=== PATIENT | female | born 1940 | race Caucasian/White ===

== ENCOUNTER 2018-03-05 20:57 | Inpatient (IN) | payer OTHER ==
[~2018-03-05] VITALS: Ht 149.9 cm; Wt 63.5 kg
[~2018-03-05 20:57] MED LIST: ALDACTONE25 MG; ARICEPT10 MG; ARICEPT10 MG PO; ASA-EC81 MG PO; BACTROBAN OINT22 GM TP; COREG CR10 MG; COZAAR PO; COZAAR25 MG; CYMBALTA60 MG; CYMBALTA60 MG PO; Coreg 12.5MG TABLET PO; Coreg PO; ECOTRIN325 M1; EFFIENT10 MG; EFFIENT10 MG PO; HumaLOG 100 UNIT/1 M SUBCUTANEO; Imdur 30MG PO; Intestinex CAP PO; LASIX20 MG; LASIX20 MG PO; LEVAQUIN500 MG PO; LIPITOR20 MG; LIPITOR20 MG PO; LOSARTAN POTASS25 MG PO; Lantus 1000 U/10 ML SUBCUTANEO; Pulmicort 0.5 MG/2 M IH; SEPTRA DS TABLE1 TAB PO; SPIRONOLACTONE25 MG PO; XOPENEX0.63 MG/3 IH
== END 2018-03-10 15:29 | disposition designated cancer center or children's hospital (05) | DRG 280 ==
LOC: ER 20:57 → MEDI 03-06 07:15 → SEC-K 03-06 09:32 → MEDI 03-06 13:39
PROC: 4A12X4Z Monitoring of Cardiac Electrical Activity, External Approach (ICD-10-PCS; 2018-03-06)
PROC: B246ZZZ Ultrasonography of Right and Left Heart (ICD-10-PCS; 2018-03-07)
PROC: 4A12XM4 Monitoring of Cardiac Stress, External Approach (ICD-10-PCS; 2018-03-07)
PROC: 3E033HZ Introduction of Radioactive Substance into Peripheral Vein, Percutaneous Approach (ICD-10-PCS; 2018-03-07)
PROC: 4A033R1 Measurement of Arterial Saturation, Peripheral, Percutaneous Approach (ICD-10-PCS; principal; 2018-03-08)
DX: I21.4 Non-ST elevation (NSTEMI) myocardial infarction (principal); I50.23 Acute on chronic systolic (congestive) heart failure; I11.0 Hypertensive heart disease with heart failure; Z95.810 Presence of automatic (implantable) cardiac defibrillator; E11.9 Type 2 diabetes mellitus without complications; I24.9 Acute ischemic heart disease, unspecified; I34.0 Nonrheumatic mitral (valve) insufficiency

== ENCOUNTER 2018-05-14 13:43 | Emergency (ER) | payer OTHER ==
[~2018-05-14] VITALS: Ht 121.9 cm; Wt 60.8 kg
== END 2018-05-14 17:49 | disposition home or self-care (01) ==
LOC: ER 13:43
DX: J45.998 Other asthma (principal); J11.1 Influenza due to unidentified influenza virus with other respiratory manifestations

== ENCOUNTER 2019-03-29 12:24 | Emergency (ER) | payer OTHER ==
[~2019-03-29] VITALS: Ht 152.4 cm; Wt 63.5 kg
[2019-03-29] MEDS ORDERED: PLAVIX75 MG (12:39)
[2019-03-29] MEDS ORDERED: ALDACTONE25 MG (12:40)
== END 2019-03-29 21:06 | disposition home or self-care (01) ==
LOC: ER 12:24 → CPU-OBS 12:47 → ER 21:06
DX: R07.89 Other chest pain (principal); K21.9 Gastro-esophageal reflux disease without esophagitis; E11.9 Type 2 diabetes mellitus without complications

== ENCOUNTER 2019-03-30 07:40 | Inpatient (IN) | payer OTHER ==
[~2019-03-30] VITALS: Ht 149.9 cm; Wt 65.8 kg
[~2019-03-30 07:40] MED LIST changes: +PLAVIX75 MG
--- NOTE | 2019-03-30 07:55 | NUR ---
PTE REFIERE TOS DESDE HACE VARIAS SEMANS REFIERE ESTUBO EN BIANKA DE EMERGENCIAS EL MAXIM DE SHASHI JOANA HOY REGRESA POR LA TOS QUE CONTINUA AFECTANDOLA SE ELLIOTT S/V YS EUBIAC EN AREA DE SPERA
--- NOTE | 2019-03-30 09:36 | NUR ---
PTE EVALUADA POR EL DR MORELOS QUIEN ORDENA EL [place]. SE ORIENTA SOBRE EL MISMO, LO CUAL REFIERE ENTENDER. SE REALIZA PRUEBAS DE LABORATORIO Y SE ADMINISTRA MEDICAMENTO RACHELLE ORDEN MEDICA Y SIGUIENDO MEDIDAS ASEPTICAS. SE REALIZA EKG Y SE PRESENTA A DR MORELOS. CON LA ASISTENCIA DE MS ROTHMAN.
--- NOTE | 2019-03-30 12:26 | NUR ---
DR MORELOS INDICA NO SE LE REPITA DXT AL MOMENTO YA QUE PTE COMIO.
[2019-04-02] MEDS ORDERED: CARVEDILOL12.5 MG PO (08:58)
[2019-04-02] MEDS ORDERED: CARVEDILOL6.25 MG PO (09:00)
[2019-04-05] MEDS ORDERED: ARICEPT10 MG PO (14:09)
[2019-04-05] MEDS ORDERED: ISOSORBIDE MONO30 MG PO (14:10)
[2019-04-05] MEDS ORDERED: LIPITOR20 MG PO (14:10)
[2019-04-05] MEDS ORDERED: CLOPIDOGREL BIS75 MG PO (14:10)
[2019-04-05] MEDS ORDERED: LOSARTAN POTASS25 MG PO (14:11)
[2019-04-05] MEDS ORDERED: SPIRONOLACTONE25 MG PO (14:11)
[2019-04-05] MEDS ORDERED: ADULT ASPIRIN81 MG PO (14:12)
[2019-04-05] MEDS ORDERED: CARVEDILOL12.5 MG PO (14:13)
[2019-04-05] MEDS ORDERED: AMOX-CLAV 875-1 EACH PO (14:14)
[2019-04-05] MEDS ORDERED: INTESTINEX680 M1 PO (14:16)
== END 2019-04-05 15:31 | disposition home or self-care (01) | DRG 280 ==
LOC: ER 07:40 → SEC-K 15:30 → MEDI 17:05
PROVIDERS: ADMIT Internal Medicine
PROC: B246ZZZ Ultrasonography of Right and Left Heart (ICD-10-PCS; principal; 2019-03-30)
PROC: 4A12X4Z Monitoring of Cardiac Electrical Activity, External Approach (ICD-10-PCS; 2019-03-30)
DX: I13.0 Hypertensive heart and chronic kidney disease with heart failure and stage 1 through stage 4 chronic kidney disease, or unspecified chronic kidney disease (principal); I50.23 Acute on chronic systolic (congestive) heart failure; I21.4 Non-ST elevation (NSTEMI) myocardial infarction; N39.0 Urinary tract infection, site not specified; N17.8 Other acute kidney failure; E11.65 Type 2 diabetes mellitus with hyperglycemia; E11.22 Type 2 diabetes mellitus with diabetic chronic kidney disease; B96.29 Other Escherichia coli [E. coli] as the cause of diseases classified elsewhere; N18.1 Chronic kidney disease, stage 1; I25.10 Atherosclerotic heart disease of native coronary artery without angina pectoris; D72.828 Other elevated white blood cell count; K21.9 Gastro-esophageal reflux disease without esophagitis; E11.319 Type 2 diabetes mellitus with unspecified diabetic retinopathy without macular edema; Z79.4 Long term (current) use of insulin; Z95.810 Presence of automatic (implantable) cardiac defibrillator

== ENCOUNTER 2019-08-05 13:12 | Emergency (ER) | payer OTHER ==
[~2019-08-05] VITALS: Ht 147.3 cm; Wt 54.0 kg
[~2019-08-05 13:12] MED LIST changes: +ADULT ASPIRIN81 MG PO; +AMOX-CLAV 875-1 EACH PO; +CARVEDILOL12.5 MG PO; +CARVEDILOL6.25 MG PO; +CLOPIDOGREL BIS75 MG PO; +INTESTINEX680 M1 PO; +ISOSORBIDE MONO30 MG PO
[2019-08-05] MEDS ORDERED: HUMULIN N100 UNIT/1 (13:47)
[2019-08-05] MEDS ORDERED: HUMULIN R500 UNIT/2 (13:47)
== END 2019-08-05 18:15 | disposition home or self-care (01) ==
LOC: ER 13:12
DX: R42 Dizziness and giddiness (principal)